=== PATIENT | female | born 1985 | race African-American/Black ===

== ENCOUNTER 2017-11-26 01:06 | Emergency (ER) | payer OTHER ==
[~2017-11-26] VITALS: Ht 170.2 cm; Wt 65.8 kg
[2017-11-26 01:30] VITALS: BP 128/78
[2017-11-26] MEDS ORDERED: LIDOCAINE /MPF 1% VIAL 5 ML VIAL ONE (01:51)
== END 2017-11-26 02:15 | disposition home or self-care (01) ==
LOC: ER 01:07
DX: S01.511A Laceration without foreign body of lip, initial encounter (principal); W22.8XXA Striking against or struck by other objects, initial encounter; Y93.89 Activity, other specified; Y92.89 Other specified places as the place of occurrence of the external cause; Y99.8 Other external cause status
CPT/HCPCS: A4606; A6402; J3490; Z7610